=== PATIENT | male | born 1990 | race Caucasian/White ===

== ENCOUNTER 2017-01-17 14:32 | Emergency (ER) | payer MEDICAID ==
--- NOTE | ~2017-01-17 | CT2 ---
[facility] A Service of [facility] RADIOLOGY TEXT RESULTS PATIENT: MIKHAIL BORREGO LOCATION: SED : 88 UNIT #: [id number] AGE: [address]: Jimbo Messer MD SEX: M ORDER DR: [id number] [place] [id number] E MR#: [id number] #: [id number] NAME: MIKHAIL BORREGO : 1990 SEX: M STUDY DATE/TIME: 01/17/2017 15:46 UNIT: SED ROOM: STUDY DESCRIPTION: CT Abd and Pelv W Cont Attending Physician: Jimbo Messer M.D. Ordering Physician: Jimbo Messer M.D. Primary Care Physician: Oam Mario A.P.R.N. MEDICAL IMAGING REPORT This report is preliminary unless electronic signature is present. EXAM CT of the abdomen and pelvis with IV contrast media HISTORY Right lower quadrant pain for 1 week with painful urination. TECHNIQUE Transaxial imaging of the abdomen and pelvis was obtained with IV contrast media: This CT exam was performed with one or more of the following radiation dose reduction techniques: automatic control, adjustment of mA and/or kV according to patient size, and iterative reconstruction. FINDINGS Lung bases are clear. Liver, gallbladder, spleen, adrenal glands and pancreas are normal. Right and left kidney are normal. The study shows marked thickening of the cecal wall as well as marked thickening of the distal and terminal ileum. There is a fluid density collection adjacent to the ileum and cecum measuring 2.2 x 3.8 x 3.1 cm. Multiple reactive nodes are identified medial to the cecum the largest of which measures up to about 1.6 cm in diameter. A normal appendix is not identified. There is free fluid dependently in the pelvis. Bladder wall appears mildly thickened. Remaining small and large bowel loops appear unremarkable. CONCLUSION Extensive inflammatory process in the right lower quadrant with marked cecal wall thickening and marked thickening of the distal and terminal ileum. There is an associated fluid collection measuring 3.8 x 2.2 x 3.1 cm which is interposed between the cecum and is lateral to the terminal and distal ileum. A normal appendix is not clearly identified. This is likely an abscess. There is reactive adjacent lymphadenopathy and some very mild adjacent bladder wall thickening. There is also free fluid in the dependent pelvis. The most likely diagnosis is acute appendicitis with adjacent inflammation in the cecum and distal ileum and terminal STS. [facility] A Service of [facility] RADIOLOGY TEXT RESULTS PATIENT: MIKHAIL BORREGO LOCATION: SED : [birth year] UNIT #: [id number] AGE: [address]: Jimbo Messer MD SEX: M ORDER DR: ileum as well as the bladder. In the differential severe inflammatory bowel disease has to be considered. Suggest surgical consultation. Dictated by... Keegan Anton M.D. THIS IS AN ELECTRONICALLY VERIFIED REPORT Keegan Anton M.D. at 01/19/2017 12:00 PM MARIO/radha TD: 01/17/2017 19:36 JOB #: [id number] MEDICAL IMAGING REPORT Page 1 of 1
[~2017-01-17 14:32] MED LIST: BUPROPION XL300 MG PO; LAMICTAL PO; VALACYCLOVIR1000 MG PO
[2017-01-17 15:05] LABS: BASOPHIL# 0.1 X10e3 (0-0.3); BASOPHIL% 0.5 % (0-2.5); EOSINOPHIL# 0.1 X10e3 (0-0.7); EOSINOPHIL% 0.5 % (0.0-7.0); HEMATOCRIT 39.9 % (38.0-50.0); HEMOGLOBIN 13.6 gm/dL (13.0-16.0); LYMPHOCYTE# 1.2 X10e3 (1.0-3.5); LYMPHOCYTE% 8.4 % (17.0-45.0); MEAN CELL VOLUME 87.8 FL (83-96); MEAN CORPUSCULAR HGB CONC 34.2 g/dL (30-36); MEAN PLATELET VOLUME 7.2 FL (6.5-11.5); MONOCYTE# 1.6 X10e3 (0-1.0); MONOCYTE% 10.8 % (3.0-12.0); NEUTROPHIL# 11.5 X10e3 (1.5-7.1); NEUTROPHIL% 79.8 % (40-75); PLATELET COUNT 392 X10e3 (140-420); RED BLOOD COUNT 4.55 X10e (3.90-5.60); RED CELL DISTRIBUTION WIDTH 12.8 % (11.0-15.5); URINE SOURCE CLEAN CATCH; WHITE BLOOD COUNT 14.4 X10e3 (4.0-10.5)
[2017-01-17 15:07] LABS: URINE APPEARANCE CLEAR; URINE BLOOD TRACE-INTACT (NEG); URINE COLOR AMBER; URINE GLUCOSE NEG (NORM); URINE KETONE 1+ (NEG); URINE LEUKOCYTE ESTERASE NEG (NEG); URINE NITRATE NEG (NEG); URINE PROTEIN 1+ (NEG); URINE SPECIFIC GRAVITY 1.015 (1.003-1.035); URINE UROBILINOGEN >=8.0 MG/DL (NORM)
[2017-01-17 15:08] LABS: DIFF IND NO
[2017-01-17 15:12] LABS: MICRO INDICATED? YES; URINE BILIRUBIN NEG (NEG)
[2017-01-17 15:22] LABS: CULTURE INDICATED? NO; URINE BACTERIA NEG (NEG); URINE RBC 0-2 /[HPF] (0-2); URINE WBC 0-2 /[HPF] (0-5)
[2017-01-17 15:27] LABS: ALBUMIN SERUM 3.5 g/dL (3.5-5.0); BILIRUBIN, DIRECT 0.4 mg/dL (0.0-0.2); BILIRUBIN,INDIRECT 0.6 mg/dL (0.0-0.9); BUN/CREATININE RATIO 12.5; CREATININE SERUM 0.8 mg/dL (0.6-1.4); GLOM FILT RATE Estimated 122.5 mL/min (>60); POTASSIUM 3.6 mmol/L (3.5-5.1); PROTEIN TOTAL SERUM 8.2 g/dL (6.0-8.3)
== END 2017-01-17 19:05 ==
LOC: SED 14:32
PROVIDERS: Emergency Medicine
DX: K35.3 Acute appendicitis with localized peritonitis (principal); F32.9 Major depressive disorder, single episode, unspecified; F90.9 Attention-deficit hyperactivity disorder, unspecified type; F43.10 Post-traumatic stress disorder, unspecified; Z88.1 Allergy status to other antibiotic agents; Z79.899 Other long term (current) drug therapy
CPT/HCPCS: 74177; 80048; 80076; 81003; 83690; 85025; 96361; 96374; 96375; 99285; J1956; J2405; Q9967